=== PATIENT | female | born 1970 | race Two or more races ===

== ENCOUNTER 2020-03-08 13:11 | Outpatient (CLI) | payer OTHER ==
[2020-03-08] MEDS ORDERED: FLONASE ALLERG9.9 ML NASAL (13:24)
== END 2020-03-08 14:00 | disposition home or self-care (01) ==
LOC: OFIC 805 13:11
PROVIDERS: ATTEND Otolaryngology Otology & Neurotology
DX: R09.81 Nasal congestion (principal); J34.89 Other specified disorders of nose and nasal sinuses; J31.0 Chronic rhinitis

== ENCOUNTER → 2020-04-07 | Outpatient (CLI) | payer OTHER ==
[~2020-04-07] MED LIST: FLONASE ALLERG9.9 ML NASAL
== END | disposition home or self-care (01) ==
LOC: OFIC 805 13:00
PROVIDERS: ATTEND Otolaryngology Otology & Neurotology
DX: R09.81 Nasal congestion (principal); J34.89 Other specified disorders of nose and nasal sinuses; J31.0 Chronic rhinitis; J34.3 Hypertrophy of nasal turbinates